=== PATIENT | male | born 1950 | race Caucasian/White ===

== ENCOUNTER 2017-03-09 23:34 | Emergency (ER) | payer MEDICAID ==
[2017-03-09 23:41] VITALS: RESP 16
--- NOTE | 2017-03-10 00:14 | EDPHY ---
General - History Smoking Status: Never smoked Narrative: CHIEF COMPLAINT: Alcohol intoxication HISTORY OF PRESENT ILLNESS: Patient arrives by EMS with reports of alcohol intoxication. He was reportedly sleeping on the side of a road. EMS was contacted to this. [place] Police was not involved. He arrives in no acute distress. He is seen shortly after arrival. He will not provide any information for me. He will open his eyes spontaneously and with verbal commands. Unable to obtain any modifying factors as he will not provide any. There is no outward signs of trauma. No other associated complaints atenolol. REVIEW OF SYSTEMS: Ten systems reviewed and are negative unless otherwise noted in the HPI PCP: Unknown SPECIALISTS: Unknown PAST MEDICAL HISTORY: Alcoholism SOCIAL HISTORY: Smoker by chart review. Daily alcohol use by chart review EXAMINATION General Appearance: Alert, no distress, unkempt. Sleeping. Head: normocephalic, atraumatic. No outward signs of trauma. Eyes: Pupils equal and round, not following commands well enough to test EOMs. ENT, Mouth: Mucous membranes moist. Gag reflex in place. Airway patent Neck: Normal inspection. Midline trachea Respiratory: Mild rhonchi. No closed or diminishment. Cardiovascular: Regular rate and rhythm. No murmur Gastrointestinal: Abdomen is soft and nondistended. Back: non-tender, no bony abnormalities Neurological: Unable to test due to lack of cooperation. No dysconjugate gaze Skin: Warm and dry, no rash. No petechiae or purpura Extremities: Nontender, no pedal edema Psychiatric: Mood and affect normal DIFFERENTIAL DIAGNOSES: Including but not limited to acute alcohol intoxication, alcoholism MDM: 12:10 a.m. Acute alcohol intoxication. Patient will not provide any complaints to me. His vital signs are stable. He is unable to ambulate at this time. Continue to monitor and plan for transfer to the [facility] when ambulatory. 12:30 a.m. At this time I have checked the patient out to Dr. Lynn. She will assume care the patient. Please see her note for final disposition. (John Man) PHYSICIAN DOCUMENTATION: The patient was evaluated and managed by the Physician Bending Frame Operator. My co- signature indicates that I have reviewed this chart and I agree with the findings and plan of care as documented. I am the secondary supervising physician. The patient was eventually able to walk with a steady gait, he felt well. The [facility] police picked him up from the emergency department and [facility]. (Lillian Lynn) - Objective Vital Signs: Initial Vital Signs Temperature (C) 36.6 C 03/09/17 23:39 Heart Rate 75 03/09/17 23:39 Respiratory Rate 16 03/09/17 23:39 Blood Pressure 127/90 H 03/09/17 23:39 O2 Sat (%) 95 03/09/17 23:39 O2 Delivery Mode Room Air Allergies/Adverse Reactions: No Known Allergies Allergy (Unverified 03/09/17 23:39) Laboratory Results: 03/10/17 00:00 Ethyl Alcohol 277 mg/dL H mg/dL (0-10) Departure - Departure Disposition: Home, Routine, Self-Care Clinical Impression: Alcoholic intoxication Qualifiers: Complication of substance-induced condition: uncomplicated Qualified Code(s): F10.920 - Alcohol use, unspecified with intoxication, uncomplicated Alcohol dependence Qualifiers: Substance use status: with intoxication Complication of substance-induced condition: uncomplicated Qualified Code(s): F10.220 - Alcohol dependence with intoxication, uncomplicated Condition: Good Instructions: Alcohol Intoxication (ED), Alcohol Dependence (ED) Referrals: Patient,NotPresent [Primary Care Provider] - As per Instructions [facility],. [Clinic] - As per Instructions Arnel Hall MD [Medical Doctor] - As per Instructions
[2017-03-10 00:23] LABS: ETHANOL SERUM 277 mg/dL (0-10)
[2017-03-10 02:36] VITALS: BP 135/73; PULSE 72; TEMP 98.1; O2SAT 96
== END 2017-03-10 02:36 | disposition home or self-care (01) ==
DX: F10.220 Alcohol dependence with intoxication, uncomplicated (principal); F17.200 Nicotine dependence, unspecified, uncomplicated
CPT/HCPCS: G0480

== ENCOUNTER 2017-03-14 08:04 | Emergency (ER) | payer MEDICAID ==
--- NOTE | 2017-03-14 08:19 | EDPHY ---
H & P Time Seen by Provider: 03/14/17 08:17 HPI/ROS: CHIEF COMPLAINT: "I'm cold" HISTORY OF PRESENT ILLNESS: The patient is a homeless alcoholic who is brought to the emergency department by paramedics after he slipped outside last night and was noted to be cold and shivering this morning. The patient does report drinking alcohol last night. He denies any history of fall or trauma. In the emergency department he states he just needs to be warmed up and then discharged. He denies any recent fever, cough or congestion. The patient currently denies any pain. The patient is unable to quantify how much alcohol he has had in the past day. REVIEW OF SYSTEMS: A comprehensive 10 point review of systems is otherwise negative aside from elements mentioned in the history of present illness. Source: Patient - Medical/Surgical History Hx Asthma: No Hx Chronic Respiratory Disease: No Hx Diabetes: No Hx Cardiac Disease: No Hx Renal Disease: No Hx Cirrhosis: No Hx Alcoholism: No Hx HIV/AIDS: No Hx Splenectomy or Spleen Trauma: No Other PMH: psych - Social History Smoking Status: Never smoked - Physical Exam Exam: General Appearance: Thin male, no acute distress, assuring Eyes: Pupils equal and round no pallor or injection ENT, Mouth: Dry mucous membranes, poor dentition Respiratory: There are no retractions, lungs are clear to auscultation Cardiovascular: Regular rate and rhythm Gastrointestinal: Abdomen is soft and nontender, no masses, bowel sounds normal Neurological: 5/5 strength noted all 4 extremities Skin: Warm and dry, no rashes Musculoskeletal: Neck is supple nontender Extremities: symmetrical, full range of motion Psychiatric: Patient is oriented X 3, there is no agitation Constitutional: Initial Vital Signs Temperature (C) 32.5 C L 03/14/17 08:27 Heart Rate 100 03/14/17 08:27 Respiratory Rate 22 H 03/14/17 08:27 Blood Pressure 109/79 03/14/17 08:27 O2 Sat (%) 98 03/14/17 08:27 O2 Delivery Mode Room Air O2 (L/minute) 2 Allergies/Adverse Reactions: No Known Allergies Allergy (Unverified 03/09/17 23:39) Medical Decision Making ED Course/Re-evaluation: The patient presents the ED with alcohol intoxication and moderate hypothermia. Patient is neurologically intact upon arrival. There is no evidence of an arrhythmia noted. The patient has no traumatic complaints. Patient received passive rewarming with a Valeria Hugger. His initial temperature was 33 degrees rectally. The patient was reexamined at 10:30 a.m. and is now normothermic. The patient did receive 1 L of warm IV fluid. The patient's laboratory studies do demonstrate a decreased CO2 likely consistent with alcoholic ketosis. The patient was given a meal in the emergency department. He was noted to have evidence of alcohol intoxication upon arrival. Plan will be for further sobering in the emergency department. 11:00 a.m.: The patient is ambulatory in the department. He has no acute complaints. The patient has been offered transfer to the [facility] however would like to be discharged from the emergency department. He is clinically sober. He has been advised to return to the ED for any recurrent symptoms or other concerns. He does plan to sleep in the homeless half-way this evening. Differential Diagnosis: Differential diagnosis considered includes hypothermia, alcohol intoxication, dehydration, metabolic abnormality - Data Points Laboratory Results: Laboratory Results 03/14/17 08:45 03/14/17 08:45 03/14/17 03/14/17 08:45 08:45 WBC 12.50 10^3/uL H 10^3/uL (3.80-9.50) RBC 4.75 10^6/uL 10^6/uL (4.40-6.38) Hgb 14.6 g/dL g/dL (13.7-17.5) Hct 42.9 % % (40.0-51.0) MCV 90.3 fL fL (81.5-99.8) MCH 30.7 pg pg (27.9-34.1) MCHC 34.0 g/dL g/dL (32.4-36.7) RDW 15.9 % H % (11.5-15.2) Plt Count 234 10^3/uL 10^3/uL (150-400) MPV 9.7 fL fL (8.7-11.7) Neut % (Auto) 89.9 % H % (39.3-74.2) Lymph % (Auto) 6.3 % L % (15.0-45.0) Bell % (Auto) 2.2 % L % (4.5-13.0) Eos % (Auto) 0.2 % L % (0.6-7.6) Baso % (Auto) 0.5 % % (0.3-1.7) Nucleat RBC Rel Count 0.0 % % (0.0-0.2) Absolute Neuts (auto) 11.25 10^3/uL H 10^3/uL (1.70-6.50) Absolute Lymphs (auto) 0.79 10^3/uL L 10^3/uL (1.00-3.00) Absolute Monos (auto) 0.27 10^3/uL L 10^3/uL (0.30-0.80) Absolute Eos (auto) 0.02 10^3/uL L 10^3/uL (0.03-0.40) Absolute Basos (auto) 0.06 10^3/uL 10^3/uL (0.02-0.10) Absolute Nucleated RBC 0.00 10^3/uL 10^3/uL (0-0.01) Immature Gran % 0.9 % % (0.0-1.1) Immature Gran # 0.11 10^3/uL H 10^3/uL (0.00-0.10) Sodium 145 mEq/L H mEq/L (134-144) Potassium 4.2 mEq/L mEq/L (3.5-5.2) Chloride 111 mEq/L H mEq/L (97-110) Carbon Dioxide 13 mEq/l L mEq/l (22-31) Anion Gap 21 mEq/L H mEq/L (8-16) BUN 24 mg/dL H mg/dL (7-23) Creatinine 0.8 mg/dL mg/dL (0.7-1.3) Estimated GFR > 60 Glucose 111 mg/dL H mg/dL (70-100) Calcium 8.3 mg/dL L mg/dL (8.5-10.4) Ethyl Alcohol 240 mg/dL H mg/dL (0-10) Departure - Departure Disposition: Home, Routine, Self-Care Clinical Impression: Hypothermia, Alcohol intoxication, Dehydration Condition: Good Instructions: Abuse of Alcohol (ED), Acute Hypothermia (ED) Referrals: NONE *PRIMARY CARE P,. [Primary Care Provider] - As per Instructions
[2017-03-14 08:53] LABS: % IMMATURE GRANULYOCYTES 0.9 % (0.0-1.1); ABSOLUTE IMMATURE GRANULOCYTES 0.11 10^3/uL (0.00-0.10); ADD DIFF? NO; ADD MORPH? NO; ADD SCAN? NO; ATYPICAL LYMPHOCYTE FLAG 0 (0-99); FRAGMENT RBC FLAG 0 (0-99); HEMATOCRIT 42.9 % (40.0-51.0); HEMOGLOBIN 14.6 g/dL (13.7-17.5); LEFT SHIFT FLG 0 (0-99); LIPEMIA HEMOLYSIS FLAG 90 (0-99); MEAN CELL HEMOGLOBIN 30.7 pg (27.9-34.1); MEAN CELL VOLUME 90.3 fL (81.5-99.8); MEAN PLATELET VOLUME 9.7 fL (8.7-11.7); PLATELET CLUMPS FLAG 0 (0-99); PLATELET COUNT 234 10^3/uL (150-400); RED BLOOD CELL COUNT 4.75 10^6/uL (4.40-6.38); RED CELL DISTRIBUTION WIDTH 15.9 % (11.5-15.2)
[2017-03-14 09:53] VITALS: RESP 18
[2017-03-14 10:08] LABS: ANION GAP 21 mEq/L (8-16); CALCIUM 8.3 mg/dL (8.5-10.4); CARBON DIOXIDE 13 mEq/l (22-31); CHLORIDE 111 mEq/L (97-110); CREATININE 0.8 mg/dL (0.7-1.3); ETHANOL SERUM 240 mg/dL (0-10); GLOMERULAR FILTRATION RATE > 60; GLUCOSE 111 mg/dL (70-100); POTASSIUM 4.2 mEq/L (3.5-5.2); SODIUM 145 mEq/L (134-144)
[2017-03-14 10:18] VITALS: TEMP 97.3
[2017-03-14 11:02] VITALS: BP 102/71; PULSE 104; O2SAT 92
== END 2017-03-14 11:04 | disposition home or self-care (01) ==
LOC: EDUNIT#
DX: F10.129 Alcohol abuse with intoxication, unspecified (principal); T68.XXXA Hypothermia, initial encounter; E86.0 Dehydration; X31.XXXA Exposure to excessive natural cold, initial encounter
CPT/HCPCS: G0480

== ENCOUNTER 2017-03-15 04:52 | Emergency (ER) | payer MEDICAID ==
[2017-03-15] MEDS ORDERED: IBUPROFEN 600 MG TAB PO ONE (04:57)
--- NOTE | 2017-03-15 05:00 | EDPHY ---
H & P HPI/ROS: HPI CHIEF COMPLAINT: Fall this evening, right knee pain, right lateral rib pain. HISTORY OF PRESENT ILLNESS: This patient very pleasant 67-year-old male, homeless, history of schizoaffective disorder, hypertension, just recently came back from [place] to [place]. [place] this [place]. And went across the street to the [facility]. patient tripped and fell while crossing the street landing on his right knee and right lateral ribs. No head strike. Denies alcohol this evening. He was at the [facility] for prolonged period of time out in the cold weather. He did manage to get himself a large hot coffee. He denies any shortness of breath. Main complaint right knee pain right lateral rib pain. He does state he is cold. Upon arrival here in the emergency room the patient's temperature is 36.8degrees orally. He does feel cold. Denies abdominal pain chest pain shortness of breath or headache. Past Medical History: Schizoaffective disorder, hypertension Past Surgical History: No recent surgery Social History: Smokes tobacco, denies drugs. Denies alcohol. Homeless. Family History: Noncontributory ROS REVIEW OF SYSTEMS: A comprehensive 10 point review of systems is otherwise negative aside from elements mentioned in the history of present illness. Exam Constitutional appears well nontoxic triage nursing summary reviewed, vital signs reviewed, awake/alert. Eyes normal conjunctivae and sclera, EOMI, PERRLA. HENT normal inspection, atraumatic, moist mucus membranes, no epistaxis, neck supple/ no meningismus, no raccoon eyes. Respiratory clear to auscultation bilaterally, normal breath sounds, no respiratory distress, no wheezing. Cardiovascular chest wall nontender to palpation specifically over the right lateral ribs, no flail chest, no ecchymosis rate normal, regular rhythm, no murmur, no edema, distal pulses normal. Gastrointestinal soft, non-tender, no rebound, no guarding, normal bowel sounds, no distension, no pulsatile mass. Genitourinary no CVA tenderness. Musculoskeletal mild tender palpation over the anterior right knee but no significant signs of trauma full range of motion, no midline vertebral tenderness, full range of motion, no calf swelling, no tenderness of extremities , no meningismus, good pulses, neurovascularly intact. Skin pink, warm, & dry, no rash, skin atraumatic. Neurologic awake, alert and oriented x 3, AAOx3, moves all 4 extremities equally, motor intact, sensory intact, CN II-XII intact, normal cerebellar, normal vision, normal speech. Psychiatric normal mood/affect. Heme/Lymph/Immune no lymphadenopathy. Differential Diagnosis: Includes but is not limited to in a particular order mechanical trip and fall, musculoskeletal injury, rib contusions, rib fractures , pneumothorax, right knee contusion. Environmental exposure. Hypothermia. Medical Decision Making: Plan for this patient ibuprofen for pain control, two view chest x-ray to rule out pneumothorax or rib fractures, right knee x-ray. Warm blanket. Re-evaluation: X-ray reviewed: Of the chest x-ray and right knee. This are unremarkable for traumatic injury. 0534: Patient is resting comfortably no acute distress has no focal complaints at this time. He has been warming up here. Drank is coffee. Head ibuprofen something to eat. He feels better. I do not appreciate pneumothorax on his chest x-ray rib fractures. Will allowed to be discharged at light. Source: Patient, EMS - Medical/Surgical History Hx Asthma: No Hx Chronic Respiratory Disease: No Hx Diabetes: No Hx Cardiac Disease: No Hx Renal Disease: No Hx Cirrhosis: No Hx Alcoholism: No Hx HIV/AIDS: No Hx Splenectomy or Spleen Trauma: No Other PMH: psych - Social History Smoking Status: Never smoked Constitutional: Initial Vital Signs Temperature (C) 37 C 03/15/17 05:06 Heart Rate 83 03/15/17 05:06 Respiratory Rate 18 03/15/17 05:06 Blood Pressure 139/99 H 03/15/17 05:06 O2 Sat (%) 95 03/15/17 05:06 O2 Delivery Mode Room Air Allergies/Adverse Reactions: No Known Allergies Allergy (Unverified 03/09/17 23:39) Home Medications: Medication Instructions Recorded GABAPENTIN 03/15/17 Lisinopril 03/15/17 Seroquel 03/15/17 VITAMIN D 03/15/17 Departure - Departure Disposition: Home, Routine, Self-Care Clinical Impression: Multiple contusions Exposure to environmental cold Qualifiers: Encounter type: initial encounter Qualified Code(s): T69.9XXA - Effect of reduced temperature, unspecified, initial encounter Condition: Good Instructions: Contusion in Adults (ED), Fall Prevention (ED) Additional Instructions: 1.Return emergency room if you have any worsening symptoms questions or concerns. Referrals: NONE *PRIMARY CARE P,. [Primary Care Provider] - As per Instructions
[2017-03-15 05:08] VITALS: RESP 18
[2017-03-15 07:14] VITALS: BP 166/104; PULSE 93; TEMP 98.4; O2SAT 97
== END 2017-03-15 07:23 | disposition home or self-care (01) ==
LOC: EDUNIT#
DX: S80.01XA Contusion of right knee, initial encounter (principal); I10 Essential (primary) hypertension; F17.200 Nicotine dependence, unspecified, uncomplicated; T69.9XXA Effect of reduced temperature, unspecified, initial encounter; W01.0XXA Fall on same level from slipping, tripping and stumbling without subsequent striking against object, initial encounter; X31.XXXA Exposure to excessive natural cold, initial encounter; Y92.410 Unspecified street and highway as the place of occurrence of the external cause

== ENCOUNTER 2017-04-26 03:03 | Emergency (ER) | payer MEDICAID ==
[2017-04-26 03:11] VITALS: TEMP 97.3
--- NOTE | 2017-04-26 03:52 | EDPHY ---
H & P Stated Complaint: pt says he fell landing on R side, c/o R sided rib pain Time Seen by Provider: 04/26/17 03:48 HPI/ROS: Chief Complaint: Right rib pain HPI: 67-year-old homeless male with a history of chronic alcoholism COPD and hepatitis C states he had a medication ankle trip and fall on the ice yesterday afternoon and landing on his right ribs. He has had rib pain since that time. No abdominal pain. Did not hit his head. No loss of consciousness. No nausea or vomiting. No shortness of breath. No fevers or chills. No cough. ROS: 10 point Review of Systems is negative except as noted in the HPI. PMH: COPD, hepatitis-C Social History: Positive smoking, positive alcohol, Family History: non-contributory Physical Exam: Gen: Awake, Alert, No Distress HEENT: Nose: no rhinorrhea Eyes: PERRLA, EOMI Mouth: Moist mucosa Neck: Supple, no JVD Chest: He has tenderness on his right anterior lateral chest wall reproducing his presenting complaints, lungs clear to auscultation Heart: S1, S2 normal, no murmur Abd: Soft, non-tender, no guarding Back: no CVA tenderness, no midline tenderness Ext: no edema, non-tender Skin: no rash Neuro: CN II-XII intact, Sensation grossly intact, Strength 5/5 in bilateral upper and lower extremities - Medical/Surgical History Hx Asthma: No Hx Chronic Respiratory Disease: No Hx Diabetes: No Hx Cardiac Disease: No Hx Renal Disease: No Hx Cirrhosis: No Hx Alcoholism: No Hx HIV/AIDS: No Hx Splenectomy or Spleen Trauma: No Other PMH: hep c, emphysema, psych - Social History Smoking Status: Current every day smoker Constitutional: Initial Vital Signs Temperature (C) 36.3 C 04/26/17 03:08 Heart Rate 79 04/26/17 03:08 Respiratory Rate 18 04/26/17 03:08 Blood Pressure 148/105 H 04/26/17 03:08 O2 Sat (%) 95 04/26/17 03:08 O2 Delivery Mode Room Air Allergies/Adverse Reactions: No Known Allergies Allergy (Verified 04/26/17 03:11) Home Medications: Medication Instructions Recorded GABAPENTIN 03/15/17 Lisinopril 03/15/17 Seroquel 03/15/17 VITAMIN D 03/15/17 Medical Decision Making - Diagnostics Imaging Results: Chest x-ray shows old rib fractures an possible new right anterior rib fractures. There is no pneumothorax or contusion. Significant emphysematous changes. Imaging: I viewed and interpreted images myself ED Course/Re-evaluation: 67-year-old male status post fall with new appearing rib fractures. Will send him home with oral analgesia, follow up with [facility], return for worsening. Departure - Departure Disposition: Home, Routine, Self-Care Clinical Impression: Rib fracture Condition: Good Instructions: Rib Fracture (ED) Additional Instructions: Follow up with [facility] in 2-3 days for re-evaluation. You may apply a Lidoderm patch every day. You may take ibuprofen, 600 mg 3 times a day as needed for pain. Return to the emergency department for increasing chest pain, shortness of breath, fevers, chills, cough, or any other concerns. Referrals: [facility],. [Clinic] - As per Instructions
[2017-04-26] MEDS ORDERED: IBUPROFEN 600 MG TAB PO ONE (04:22)
[2017-04-26] MEDS ORDERED: LIDOCAINE 5% 1 EA PATCH TD ONE (04:46)
[2017-04-26 04:53] VITALS: BP 159/79; PULSE 88; RESP 16; O2SAT 92
[2017-04-26] MEDS ORDERED: LIDOCAINE 5% 1 EA PATCH TD SCH (09:00)
== END 2017-04-26 04:51 | disposition home or self-care (01) ==
LOC: EDUNIT#
DX: S22.31XA Fracture of one rib, right side, initial encounter for closed fracture (principal); J44.9 Chronic obstructive pulmonary disease, unspecified; F17.200 Nicotine dependence, unspecified, uncomplicated; W01.0XXA Fall on same level from slipping, tripping and stumbling without subsequent striking against object, initial encounter